=== PATIENT | male | born 1945 | race Caucasian/White ===

== ENCOUNTER 2023-09-26 14:40 | Inpatient (IN) | payer OTHER ==
[2023-09-26 15:16] VITALS: BMI 27.8
[2023-09-26 16:08] LABS: EOS % 2.2 % (0-4.5); HEMATOCRIT 38.6 % (35.4-49); HEMOGLOBIN 13.3 GM/dL (11.7-16.9); LYMPH % 10.6 % (8-40); MCH 31.7 pg (25.7-33.7); MCHC 34.5 g/dl (32.0-35.9); MEAN PLT VOLUME 9.7 fl (7.5-11.1); MONO % 6.9 % (3.8-10.2); NEUT % 79.3 % (42.8-82.8); PLATELET COUNT 208 10^3/uL (134-434); RDW 15.4 % (11.9-15.9); WHITE BLOOD COUNT 5.5 K/mm3 (4.0-10.0)
[2023-09-26 16:24] LABS: INR 1.26 (0.83-1.09); PROTHROMBIN TIME (PATIENT) 14.6 SEC (9.7-13.0)
[2023-09-26 16:26] LABS: POTASSIUM 3.6 mmol/L (3.5-5.1)
[2023-09-26 16:28] LABS: CALCIUM 9.1 mg/dL (8.5-10.1)
[2023-09-26 16:29] LABS: ALBUMIN 3.8 g/dl (3.4-5.0); BLOOD UREA NITROGEN 24.5 mg/dL (7-18)
[2023-09-26 16:31] LABS: CREATININE 1.2 mg/dL (0.55-1.3)
[2023-09-26 16:33] LABS: BILIRUBIN,TOTAL 0.9 mg/dL (0.2-1); TOT PROT 7.3 g/dl (6.4-8.2)
[2023-09-26] MEDS ORDERED: ACETAMINOPHEN 325 MG TABLET (FP) PO PRN (18:04)
[2023-09-26 18:17] LABS: URINE APPEARANCE CLEAR; URINE BILIRUBIN NEGATIVE (NEGATIVE); URINE COLOR YELLOW; URINE GLUCOSE (UA) NEGATIVE (NEGATIVE); URINE KETONE NEGATIVE (NEGATIVE); URINE LEUK ESTERASE NEGATIVE (NEGATIVE); URINE NITRITE NEGATIVE (NEGATIVE); URINE PROTEIN NEGATIVE (NEGATIVE)
[2023-09-26] MEDS: cloBAZam 10 MG TABLET PO SCH (22:33)
[2023-09-26] MEDS: lamoTRIgine 100 MG TABLET PO SCH (22:33)
[2023-09-26] MEDS: LACOSAMIDE 50 MG TABLET PO SCH (22:33)
[2023-09-26] MEDS: DOCUSATE SODIUM 100 MG CAPSULE (FP) PO SCH (22:33)
[2023-09-26] MEDS: ROSUVASTATIN CA 10 MG TABLET PO SCH (22:33)
[2023-09-26] MEDS: OXcarbazepine 300 MG TABLET (UD) PO SCH (22:43)
[2023-09-26] MEDS: CITALOPRAM HYDROBROMIDE 20 MG TABLET PO SCH (22:43)
[2023-09-27] MEDS ORDERED: POLYETHYLENE GLYCOL 3350 255 GM BTL PO SCH (10:00)
[2023-09-27] MEDS: ENOXAPARIN NA (PORCINE) 40 MG/0.4 ML DISP.SYRIN SQ SCH (11:56)
[2023-09-27] MEDS: lamoTRIgine 100 MG TABLET PO SCH ×2 (11:57→21:34)
[2023-09-27] MEDS: metoPROLOL SUCCINATE 25 MG TAB.SR.24H (FP) PO SCH (11:57)
[2023-09-27] MEDS: ISOSORBIDE MONONITRATE 30 MG TAB.SR.24H (FP) PO SCH (11:57)
[2023-09-27] MEDS: cloBAZam 10 MG TABLET PO SCH ×2 (11:57→21:34)
[2023-09-27] MEDS: LACOSAMIDE 50 MG TABLET PO SCH ×2 (11:58→21:34)
[2023-09-27] MEDS: ASPIRIN COATED 81 MG TABLET.EC PO SCH (11:58)
[2023-09-27] MEDS: PANTOPRAZOLE 40 MG TABLET PO SCH (11:58)
[2023-09-27] MEDS: TAMSULOSIN HCL 0.4 MG CAP PO SCH (11:58)
[2023-09-27] MEDS: FINASTERIDE 5 MG TABLET (FP) PO SCH (11:58)
[2023-09-27] MEDS: amLODIPine BESYLATE 10 MG TABLET (FP) PO SCH (11:58)
[2023-09-27] MEDS: FUROSEMIDE 40 MG TABLET (FP) PO SCH (11:59)
[2023-09-27] MEDS: POLYETHYLENE GLYCOL (HEALTHYLAX) 3350 17 GM PACKET PO SCH (16:14)
[2023-09-27] MEDS: CITALOPRAM HYDROBROMIDE 20 MG TABLET PO SCH (21:34)
[2023-09-27] MEDS: ROSUVASTATIN CA 10 MG TABLET PO SCH (21:34)
[2023-09-27] MEDS: OXcarbazepine 300 MG TABLET (UD) PO SCH (21:34)
[2023-09-27] MEDS: DOCUSATE SODIUM 100 MG CAPSULE (FP) PO SCH (21:34)
[2023-09-28 08:00] LABS: HEMOGLOBIN 13.1 GM/dL (11.7-16.9); MCH 30.8 pg (25.7-33.7); MCHC 32.7 g/dl (32.0-35.9); MEAN CELL VOLUME 94.1 fl (80-96); MEAN PLT VOLUME 9.3 fl (7.5-11.1); PLATELET COUNT 213 10^3/uL (134-434); POTASSIUM 4.3 mmol/L (3.5-5.1); RBC 4.26 M/mm3 (4.00-5.60); RDW 15.3 % (11.9-15.9); WHITE BLOOD COUNT 5.9 K/mm3 (4.0-10.0)
[2023-09-28 08:06] LABS: ALBUMIN 3.6 g/dl (3.4-5.0)
[2023-09-28 08:09] LABS: CREATININE 1.3 mg/dL (0.55-1.3)
[2023-09-28 08:10] LABS: TOT PROT 7.1 g/dl (6.4-8.2)
[2023-09-28] MEDS: lamoTRIgine 100 MG TABLET PO SCH ×2 (09:24→22:34)
[2023-09-28] MEDS: ASPIRIN COATED 81 MG TABLET.EC PO SCH (09:25)
[2023-09-28] MEDS: TAMSULOSIN HCL 0.4 MG CAP PO SCH (09:25)
[2023-09-28] MEDS: ISOSORBIDE MONONITRATE 30 MG TAB.SR.24H (FP) PO SCH (09:26)
[2023-09-28] MEDS: LACOSAMIDE 50 MG TABLET PO SCH ×2 (09:26→22:32)
[2023-09-28] MEDS: FINASTERIDE 5 MG TABLET (FP) PO SCH (09:27)
[2023-09-28] MEDS: FUROSEMIDE 40 MG TABLET (FP) PO SCH (09:27)
[2023-09-28] MEDS: cloBAZam 10 MG TABLET PO SCH ×2 (09:27→22:33)
[2023-09-28] MEDS: POLYETHYLENE GLYCOL (HEALTHYLAX) 3350 17 GM PACKET PO SCH (09:28)
[2023-09-28] MEDS: ENOXAPARIN NA (PORCINE) 40 MG/0.4 ML DISP.SYRIN SQ SCH (09:28)
[2023-09-28] MEDS: metoPROLOL SUCCINATE 25 MG TAB.SR.24H (FP) PO SCH (09:28)
[2023-09-28] MEDS: PANTOPRAZOLE 40 MG TABLET PO SCH (09:28)
[2023-09-28] MEDS: amLODIPine BESYLATE 10 MG TABLET (FP) PO SCH (09:59)
[2023-09-28] MEDS: DOCUSATE SODIUM 100 MG CAPSULE (FP) PO SCH (22:32)
[2023-09-28] MEDS: ROSUVASTATIN CA 10 MG TABLET PO SCH (22:33)
[2023-09-28] MEDS: CITALOPRAM HYDROBROMIDE 20 MG TABLET PO SCH (22:33)
[2023-09-28] MEDS: OXcarbazepine 300 MG TABLET (UD) PO SCH (22:34)
[2023-09-29] MEDS: POLYETHYLENE GLYCOL (HEALTHYLAX) 3350 17 GM PACKET PO SCH (10:47)
[2023-09-29] MEDS: ISOSORBIDE MONONITRATE 30 MG TAB.SR.24H (FP) PO SCH (10:48)
[2023-09-29] MEDS: FUROSEMIDE 40 MG TABLET (FP) PO SCH (10:48)
[2023-09-29] MEDS: cloBAZam 10 MG TABLET PO SCH ×2 (10:48→21:27)
[2023-09-29] MEDS: FINASTERIDE 5 MG TABLET (FP) PO SCH (10:48)
[2023-09-29] MEDS: LACOSAMIDE 50 MG TABLET PO SCH ×2 (10:49→21:27)
[2023-09-29] MEDS: amLODIPine BESYLATE 10 MG TABLET (FP) PO SCH (10:49)
[2023-09-29] MEDS: TAMSULOSIN HCL 0.4 MG CAP PO SCH (10:49)
[2023-09-29] MEDS: metoPROLOL SUCCINATE 25 MG TAB.SR.24H (FP) PO SCH (10:49)
[2023-09-29] MEDS: lamoTRIgine 100 MG TABLET PO SCH ×2 (10:50→21:26)
[2023-09-29] MEDS: ASPIRIN COATED 81 MG TABLET.EC PO SCH (10:51)
[2023-09-29] MEDS: ENOXAPARIN NA (PORCINE) 40 MG/0.4 ML DISP.SYRIN SQ SCH (10:51)
[2023-09-29] MEDS: PANTOPRAZOLE 40 MG TABLET PO SCH (10:51)
[2023-09-29] MEDS: OXcarbazepine 300 MG TABLET (UD) PO SCH (21:26)
[2023-09-29] MEDS: DOCUSATE SODIUM 100 MG CAPSULE (FP) PO SCH (21:27)
[2023-09-29] MEDS: ROSUVASTATIN CA 10 MG TABLET PO SCH (21:27)
[2023-09-29] MEDS: CITALOPRAM HYDROBROMIDE 20 MG TABLET PO SCH (21:28)
[2023-09-30] MEDS: POLYETHYLENE GLYCOL (HEALTHYLAX) 3350 17 GM PACKET PO SCH (09:48)
[2023-09-30] MEDS: FINASTERIDE 5 MG TABLET (FP) PO SCH (09:48)
[2023-09-30] MEDS: LACOSAMIDE 50 MG TABLET PO SCH ×2 (09:48→21:05)
[2023-09-30] MEDS: ENOXAPARIN NA (PORCINE) 40 MG/0.4 ML DISP.SYRIN SQ SCH (09:48)
[2023-09-30] MEDS: FUROSEMIDE 40 MG TABLET (FP) PO SCH (09:48)
[2023-09-30] MEDS: TAMSULOSIN HCL 0.4 MG CAP PO SCH (09:48)
[2023-09-30] MEDS: PANTOPRAZOLE 40 MG TABLET PO SCH (09:49)
[2023-09-30] MEDS: ASPIRIN COATED 81 MG TABLET.EC PO SCH (09:49)
[2023-09-30] MEDS: cloBAZam 10 MG TABLET PO SCH ×2 (09:49→21:05)
[2023-09-30] MEDS: ISOSORBIDE MONONITRATE 30 MG TAB.SR.24H (FP) PO SCH (09:49)
[2023-09-30] MEDS: amLODIPine BESYLATE 10 MG TABLET (FP) PO SCH (09:49)
[2023-09-30] MEDS: metoPROLOL SUCCINATE 25 MG TAB.SR.24H (FP) PO SCH (09:49)
[2023-09-30] MEDS: lamoTRIgine 100 MG TABLET PO SCH ×2 (09:52→21:06)
[2023-09-30] MEDS: ROSUVASTATIN CA 10 MG TABLET PO SCH (21:05)
[2023-09-30] MEDS: CITALOPRAM HYDROBROMIDE 20 MG TABLET PO SCH (21:05)
[2023-09-30] MEDS: DOCUSATE SODIUM 100 MG CAPSULE (FP) PO SCH (21:05)
[2023-09-30] MEDS: OXcarbazepine 300 MG TABLET (UD) PO SCH (21:06)
[2023-10-01 09:41] LABS: POTASSIUM 3.7 mmol/L (3.5-5.1)
[2023-10-01 09:49] LABS: ALBUMIN 3.5 g/dl (3.4-5.0); CALCIUM 9.1 mg/dL (8.5-10.1); MAGNESIUM 2.3 mg/dL (1.8-2.4)
[2023-10-01 09:52] LABS: CREATININE 1.2 mg/dL (0.55-1.3); PHOSPHOROUS 3.7 mg/dL (2.5-4.9)
[2023-10-01 09:54] LABS: BILIRUBIN,TOTAL 0.8 mg/dL (0.2-1)
[2023-10-01 09:55] LABS: TOT PROT 7.1 g/dl (6.4-8.2)
[2023-10-01] MEDS: ENOXAPARIN NA (PORCINE) 40 MG/0.4 ML DISP.SYRIN SQ SCH (09:57)
[2023-10-01] MEDS: ASPIRIN COATED 81 MG TABLET.EC PO SCH (09:58)
[2023-10-01] MEDS: amLODIPine BESYLATE 10 MG TABLET (FP) PO SCH (09:58)
[2023-10-01] MEDS: cloBAZam 10 MG TABLET PO SCH ×2 (09:58→21:28)
[2023-10-01] MEDS: FUROSEMIDE 40 MG TABLET (FP) PO SCH (09:58)
[2023-10-01] MEDS: PANTOPRAZOLE 40 MG TABLET PO SCH (09:58)
[2023-10-01] MEDS: ISOSORBIDE MONONITRATE 30 MG TAB.SR.24H (FP) PO SCH (09:58)
[2023-10-01] MEDS: FINASTERIDE 5 MG TABLET (FP) PO SCH (09:58)
[2023-10-01] MEDS: LACOSAMIDE 50 MG TABLET PO SCH ×2 (09:58→21:28)
[2023-10-01] MEDS: metoPROLOL SUCCINATE 25 MG TAB.SR.24H (FP) PO SCH (09:58)
[2023-10-01] MEDS: TAMSULOSIN HCL 0.4 MG CAP PO SCH (09:58)
[2023-10-01] MEDS: lamoTRIgine 100 MG TABLET PO SCH ×2 (09:59→21:30)
[2023-10-01] MEDS: POLYETHYLENE GLYCOL (HEALTHYLAX) 3350 17 GM PACKET PO SCH (10:00)
[2023-10-01 10:03] LABS: BASO % 1.3 % (0-2.0); EOS % 4.6 % (0-4.5); HEMATOCRIT 42.2 % (35.4-49); HEMOGLOBIN 14.3 GM/dL (11.7-16.9); LYMPH % 20.5 % (8-40); MCH 31.2 pg (25.7-33.7); MCHC 33.8 g/dl (32.0-35.9); MEAN CELL VOLUME 92.3 fl (80-96); MEAN PLT VOLUME 9.4 fl (7.5-11.1); MONO % 8.1 % (3.8-10.2); NEUT % 65.5 % (42.8-82.8); PLATELET COUNT 234 10^3/uL (134-434); RBC 4.57 M/mm3 (4.00-5.60); RDW 15.6 % (11.9-15.9); WHITE BLOOD COUNT 5.4 K/mm3 (4.0-10.0)
[2023-10-01] MEDS: DOCUSATE SODIUM 100 MG CAPSULE (FP) PO SCH (21:28)
[2023-10-01] MEDS: ROSUVASTATIN CA 10 MG TABLET PO SCH (21:28)
[2023-10-01] MEDS: CITALOPRAM HYDROBROMIDE 20 MG TABLET PO SCH (21:28)
[2023-10-01] MEDS: OXcarbazepine 300 MG TABLET (UD) PO SCH (21:30)
[2023-10-02] MEDS ORDERED: ACETAMINOPHEN 325 MG TABLET (FP) PO PRN (06:45)
[2023-10-02 09:39] LABS: BASO % 0.6 % (0-2.0); EOS % 3.6 % (0-4.5); HEMOGLOBIN 14.1 GM/dL (11.7-16.9); LYMPH % 14.2 % (8-40); MCH 31.2 pg (25.7-33.7); MCHC 34.2 g/dl (32.0-35.9); MEAN CELL VOLUME 91.2 fl (80-96); MEAN PLT VOLUME 8.7 fl (7.5-11.1); MONO % 6.1 % (3.8-10.2); NEUT % 75.5 % (42.8-82.8); PLATELET COUNT 235 10^3/uL (134-434); RDW 15.1 % (11.9-15.9); WHITE BLOOD COUNT 6.6 K/mm3 (4.0-10.0)
[2023-10-02] MEDS: TAMSULOSIN HCL 0.4 MG CAP PO SCH (09:59)
[2023-10-02] MEDS: ISOSORBIDE MONONITRATE 30 MG TAB.SR.24H (FP) PO SCH (09:59)
[2023-10-02] MEDS: lamoTRIgine 100 MG TABLET PO SCH ×2 (10:00→21:08)
[2023-10-02] MEDS: PANTOPRAZOLE 40 MG TABLET PO SCH (10:01)
[2023-10-02] MEDS: metoPROLOL SUCCINATE 25 MG TAB.SR.24H (FP) PO SCH (10:01)
[2023-10-02] MEDS: ASPIRIN COATED 81 MG TABLET.EC PO SCH (10:01)
[2023-10-02] MEDS: ENOXAPARIN NA (PORCINE) 40 MG/0.4 ML DISP.SYRIN SQ SCH (10:01)
[2023-10-02] MEDS: FINASTERIDE 5 MG TABLET (FP) PO SCH (10:01)
[2023-10-02] MEDS: amLODIPine BESYLATE 10 MG TABLET (FP) PO SCH (10:01)
[2023-10-02] MEDS: LACOSAMIDE 50 MG TABLET PO SCH ×2 (10:01→21:08)
[2023-10-02] MEDS: cloBAZam 10 MG TABLET PO SCH ×2 (10:01→21:09)
[2023-10-02] MEDS: FUROSEMIDE 40 MG TABLET (FP) PO SCH (10:01)
[2023-10-02] MEDS: POLYETHYLENE GLYCOL (HEALTHYLAX) 3350 17 GM PACKET PO SCH (10:02)
[2023-10-02 10:12] LABS: POTASSIUM 3.3 mmol/L (3.5-5.1)
[2023-10-02 11:13] LABS: ALBUMIN 3.5 g/dl (3.4-5.0); CALCIUM 9.2 mg/dL (8.5-10.1)
[2023-10-02 11:16] LABS: CREATININE 1.2 mg/dL (0.55-1.3)
[2023-10-02 11:18] LABS: TOT PROT 7.1 g/dl (6.4-8.2)
[2023-10-02 11:19] LABS: BILIRUBIN,TOTAL 0.8 mg/dL (0.2-1)
[2023-10-02] MEDS ORDERED: POTASSIUM CHLORIDE TABS 20 MEQ TABLET.ER (FP) PO ONE (16:27)
[2023-10-02] MEDS: DOCUSATE SODIUM 100 MG CAPSULE (FP) PO SCH (21:07)
[2023-10-02] MEDS: CITALOPRAM HYDROBROMIDE 20 MG TABLET PO SCH (21:08)
[2023-10-02] MEDS: ROSUVASTATIN CA 10 MG TABLET PO SCH (21:09)
[2023-10-02] MEDS: OXcarbazepine 300 MG TABLET (UD) PO SCH (21:10)
[2023-10-03 09:38] LABS: BASO % 0.9 % (0-2.0); EOS % 3.5 % (0-4.5); HEMATOCRIT 44.4 % (35.4-49); HEMOGLOBIN 15.1 GM/dL (11.7-16.9); LYMPH % 16.3 % (8-40); MCH 31.3 pg (25.7-33.7); MCHC 34.1 g/dl (32.0-35.9); MEAN PLT VOLUME 9.1 fl (7.5-11.1); MONO % 7.8 % (3.8-10.2); NEUT % 71.5 % (42.8-82.8); PLATELET COUNT 219 10^3/uL (134-434); RBC 4.83 M/mm3 (4.00-5.60); RDW 15.1 % (11.9-15.9); WHITE BLOOD COUNT 6.2 K/mm3 (4.0-10.0)
[2023-10-03 09:55] LABS: POTASSIUM 3.8 mmol/L (3.5-5.1)
[2023-10-03] MEDS: PANTOPRAZOLE 40 MG TABLET PO SCH (10:17)
[2023-10-03] MEDS: ASPIRIN COATED 81 MG TABLET.EC PO SCH (10:17)
[2023-10-03] MEDS: FINASTERIDE 5 MG TABLET (FP) PO SCH (10:17)
[2023-10-03] MEDS: ENOXAPARIN NA (PORCINE) 40 MG/0.4 ML DISP.SYRIN SQ SCH (10:17)
[2023-10-03] MEDS: TAMSULOSIN HCL 0.4 MG CAP PO SCH (10:17)
[2023-10-03] MEDS: LACOSAMIDE 50 MG TABLET PO SCH ×2 (10:17→21:18)
[2023-10-03] MEDS: FUROSEMIDE 40 MG TABLET (FP) PO SCH (10:17)
[2023-10-03] MEDS: cloBAZam 10 MG TABLET PO SCH ×2 (10:17→21:18)
[2023-10-03] MEDS: ISOSORBIDE MONONITRATE 30 MG TAB.SR.24H (FP) PO SCH (10:17)
[2023-10-03] MEDS: amLODIPine BESYLATE 10 MG TABLET (FP) PO SCH (10:18)
[2023-10-03] MEDS: metoPROLOL SUCCINATE 25 MG TAB.SR.24H (FP) PO SCH (10:18)
[2023-10-03] MEDS: lamoTRIgine 100 MG TABLET PO SCH ×2 (10:18→21:20)
[2023-10-03] MEDS: POLYETHYLENE GLYCOL (HEALTHYLAX) 3350 17 GM PACKET PO SCH (10:18)
[2023-10-03 10:24] LABS: ALBUMIN 3.7 g/dl (3.4-5.0); CALCIUM 9.5 mg/dL (8.5-10.1)
[2023-10-03 10:25] LABS: MAGNESIUM 2.5 mg/dL (1.8-2.4)
[2023-10-03 10:27] LABS: CREATININE 1.1 mg/dL (0.55-1.3); PHOSPHOROUS 3.4 mg/dL (2.5-4.9)
[2023-10-03 10:28] LABS: BILIRUBIN,TOTAL 0.9 mg/dL (0.2-1); TOT PROT 7.4 g/dl (6.4-8.2)
[2023-10-03] MEDS ORDERED: POTASSIUM CHLORIDE TABS 20 MEQ TABLET.ER (FP) PO ONE (14:04)
[2023-10-03] MEDS: CITALOPRAM HYDROBROMIDE 20 MG TABLET PO SCH (21:18)
[2023-10-03] MEDS: ROSUVASTATIN CA 10 MG TABLET PO SCH (21:18)
[2023-10-03] MEDS: DOCUSATE SODIUM 100 MG CAPSULE (FP) PO SCH (21:19)
[2023-10-03] MEDS: OXcarbazepine 300 MG TABLET (UD) PO SCH (21:20)
[2023-10-04] MEDS: POLYETHYLENE GLYCOL (HEALTHYLAX) 3350 17 GM PACKET PO SCH (09:20)
[2023-10-04] MEDS: metoPROLOL SUCCINATE 25 MG TAB.SR.24H (FP) PO SCH (09:20)
[2023-10-04] MEDS: TAMSULOSIN HCL 0.4 MG CAP PO SCH (09:20)
[2023-10-04] MEDS: ENOXAPARIN NA (PORCINE) 40 MG/0.4 ML DISP.SYRIN SQ SCH (09:20)
[2023-10-04] MEDS: amLODIPine BESYLATE 10 MG TABLET (FP) PO SCH (09:20)
[2023-10-04] MEDS: cloBAZam 10 MG TABLET PO SCH (09:20)
[2023-10-04] MEDS: FUROSEMIDE 40 MG TABLET (FP) PO SCH (09:20)
[2023-10-04] MEDS: FINASTERIDE 5 MG TABLET (FP) PO SCH (09:20)
[2023-10-04] MEDS: ASPIRIN COATED 81 MG TABLET.EC PO SCH (09:20)
[2023-10-04] MEDS: LACOSAMIDE 50 MG TABLET PO SCH (09:20)
[2023-10-04] MEDS: PANTOPRAZOLE 40 MG TABLET PO SCH (09:20)
[2023-10-04] MEDS: ISOSORBIDE MONONITRATE 30 MG TAB.SR.24H (FP) PO SCH (09:20)
[2023-10-04] MEDS: lamoTRIgine 100 MG TABLET PO SCH (09:21)
[2023-10-04 11:11] VITALS: BP 133/70; PULSE 77; RESP 16; TEMP 97.9
== END 2023-10-04 12:02 | DRG 310 ==
LOC: JER 14:40 → UNDOADMOB 17:22 → JERBED 17:22 → J4S 21:43 → JERBED 21:43 → J4S 09-28 15:47 → J6S 09-28 15:47 → INTOOBSV 09-30 10:01 → OBSVTOIN 09-30 10:01
PROVIDERS: ADMIT Internal Medicine; ATTEND Student in an Organized Health Care Education/Training Program
DX: I48.92 Unspecified atrial flutter (principal); I10 Essential (primary) hypertension; I48.91 Unspecified atrial fibrillation; E78.5 Hyperlipidemia, unspecified; K21.9 Gastro-esophageal reflux disease without esophagitis; F79 Unspecified intellectual disabilities; E87.6 Hypokalemia; N40.0 Benign prostatic hyperplasia without lower urinary tract symptoms; R26.89 Other abnormalities of gait and mobility; F70 Mild intellectual disabilities; R29.6 Repeated falls; W18.30XA Fall on same level, unspecified, initial encounter; Z95.0 Presence of cardiac pacemaker; Y92.098 Other place in other non-institutional residence as the place of occurrence of the external cause
CPT/HCPCS: 0241U-QW; 36415; 71045-TC-FY; 72131-TC; 80053; 81003; 82962; 83735; 84100; 84484; 85025; 85027; 85610; 85730; 93005; 93010; 93306-TC; 97116-GP; 97162-GP; 99285-25; G0378